=== PATIENT | male | born 1945 | race Caucasian/White ===

== ENCOUNTER 2016-12-17 12:54 | Inpatient (IN) | payer MEDICARE, OTHER ==
[~2016-12-17] VITALS: Ht 162.6 cm; Wt 71.7 kg
[2016-12-17] VITALS (7 sets, daily range): BP systolic 118–134; BP diastolic 60–78; PULSE 62–99; RESP 17–20; TEMP 96–97.9; O2SAT 91–98
[~2016-12-17 12:54] MED LIST: ASPI325T PO; BUME1TAB PO; CARV12.5 PO; DUONI NEB; KCL20 PO; LACT20SO4 PO; MAGN400 PO; METHI10 PO; PHEN100 PO; PRED20 PO; PRIL20CA PO
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
[2016-12-17] MEDS ORDERED: SODIUM CHLORIDE 0.9% FLUSH 10 ML FLUSH IVF PRN (13:15)
--- NOTE | 2016-12-17 14:01 | RADRPT ---
EXAM DATE/TIME: 12/17/2016 13:46 [facility] COMPARISON: CHEST SINGLE AP, December 03, 2015, 14:43. INDICATIONS : Fall 3 days ago. Left hip fracture. MEDICAL HISTORY : Hypertension. Chronic obstructive pulmonary disease. SURGICAL HISTORY : Pacemaker. ENCOUNTER: Initial ACUITY: 3 days PAIN SCORE: 9/10 LOCATION: Left hip FINDINGS: 2 portable frontal views of the chest show elevation left hemidiaphragm. Bibasilar parenchymal consol idation more pronounced on the left. Heart is normal in size. Pulmonary vasculature is normal. Pacing device overlies the left chest. A mildly degenerative thoracic spine. CONCLUSION: Mild bibasilar atelectasis. Nadeem Rm Jr., MD on December 17, 2016 at 13:58 Board Certified Radiologist. This report was verified electronically.
--- NOTE | 2016-12-17 14:14 | RADRPT ---
EXAM DATE/TIME: 12/17/2016 13:28 [facility] COMPARISON: CHEST PA & LAT, December 05, 2015, 10:57. INDICATIONS : Falll 3 days ago. Left hip fracture. MEDICAL HISTORY : Hypertension. Chronic obstructive pulmonary disease. SURGICAL HISTORY : Pacemaker. ENCOUNTER: Initial ACUITY: 3 days PAIN SCORE: 9/10 LOCATION: Left hip FINDINGS: The examination demonstrates a mildly displaced intratrochanteric fracture of the left hip. The remai nder of the femur is intact. The femoral head remains well situated within the acetabular fossa. CONCLUSION: 1. Comminuted, mildly displaced intratrochanteric fracture of the left hip. Justino Castañeda MD on December 17, 2016 at 14:12 Board Certified Radiologist. This report was verified electronically.
--- NOTE | 2016-12-17 14:15 | RADRPT ---
EXAM DATE/TIME: 12/17/2016 13:28 [facility] COMPARISON: CHEST PA & LAT, December 05, 2015, 10:57. INDICATIONS : Fall 3 days ago. Left hip fracture. MEDICAL HISTORY : Hypertension. Chronic obstructive pulmonary disease. SURGICAL HISTORY : Pacemaker. ENCOUNTER: Initial ACUITY: 3 days PAIN SCORE: 9/10 LOCATION: Left hip FINDINGS: The examination demonstrates a mildly displaced intratrochanteric fracture of the left hip. The remai nder of the osseous structures are intact. There are advanced degenerative changes within the lumbar spine. CONCLUSION: 1. Comminuted intratrochanteric fracture of the left hip. Justino Castañeda MD on December 17, 2016 at 14:13 Board Certified Radiologist. This report was verified electronically.
[2016-12-17 14:29] LABS: AUTOMATED NEUTROPHIL # 10.3 TH/MM3 (1.8-7.7); BASOPHIL % 0.2 % (0.0-2.0); EOSINOPHIL # 0.2 TH/MM3 (0-0.4); EOSINOPHIL % 1.4 % (0.0-4.0); HEMATOCRIT 34.7 % (39.0-51.0); HEMO FLAGS DIFF FINAL; LYMPH % 6.1 % (9.0-44.0); LYMPHOCYTE # 0.7 TH/MM3 (1.0-4.8); MEAN CELL VOLUME 99.3 FL (80.0-100.0); MEAN CORPUSCULAR HGB CONC 34.3 % (32.0-36.0); NEUT % 84.3 % (16.0-70.0); PLATELET COUNT 136 TH/MM3 (150-450); RED CELL DISTRIBUTION WIDTH 12.9 % (11.6-17.2); WHITE BLOOD COUNT 12.2 TH/MM3 (4.0-11.0)
[2016-12-17 14:30] LABS: BLOOD, URINE NEG (NEG); GLUCOSE,URINE NEG (NEG); HYALINE CAST, URINE 1 /lpf (RARE); KETONE, URINE NEG (NEG); NITRITE,URINE NEG (NEG); PH, URINE 6.5 (5.0-8.5); URINE COLOR YELLOW (YELLW/STRAW)
[2016-12-17 14:31] LABS: COMMENT (UR) CATH-CULT NOT IND; CULTURE IF INDICATED CATH CULTURE NOT IND
[2016-12-17 14:31] LABS: APTT (PATIENT) 26.8 SEC (24.3-30.1); INTERNATIONAL NORMALIZED RATIO 1.1 RATIO; PROTHROMBIN TIME - PATIENT 11.9 SEC (9.8-11.6)
[2016-12-17] MEDS ORDERED: FURO1TAB62 PO (14:34)
[2016-12-17] MEDS ORDERED: ASPI325T PO (14:34)
[2016-12-17] MEDS ORDERED: POTA10TA2 PO (14:34)
[2016-12-17] MEDS ORDERED: CARV3.125 PO (14:34)
[2016-12-17 14:36] LABS: ALT (GPT) 20 U/L (12-78); ANION GAP 9 MEQ/L (5-15); AST (GOT) 25 U/L (15-37); BICARBONATE 24.3 MEQ/L (21.0-32.0); BLOOD UREA NITROGEN 16 MG/DL (7-18); CHLORIDE 96 MEQ/L (98-107); GLOMERULAR FILTRATION RATE 103 ML/MIN (>89); POTASSIUM 4.5 MEQ/L (3.5-5.1); SODIUM (NA) 129 MEQ/L (136-145)
[2016-12-17 14:39] LABS: ALKALINE PHOSPHATASE 132 U/L (45-117)
[2016-12-17] MEDS ORDERED: BISACODYL 10 MG SUPP RECTAL PRN (15:00)
[2016-12-17] MEDS ORDERED: ONDANSETRON HCL 4 MG/2 ML VIAL IVP PRN (15:00)
[2016-12-17] MEDS ORDERED: MAGNESIUM HYDROXIDE SUSP 30 ML CUP PO PRN (15:00)
[2016-12-17] MEDS ORDERED: HYDROmorphone HCL PF 1 MG/ML VIAL IV PRN (15:00)
[2016-12-17] MEDS ORDERED: LACTULOSE SYRUP 20 GM/30 ML CUP PO PRN (15:00)
[2016-12-17] MEDS ORDERED: NALOXONE HCL 0.4 MG/ML AMP IV PRN (15:00)
[2016-12-17] MEDS ORDERED: SENNOSIDES 8.6 MG TAB PO PRN (15:00)
[2016-12-17] MEDS ORDERED: SODIUM CHLORIDE 0.9% FLUSH 10 ML FLUSH IV FLUSH PRN (15:00)
[2016-12-17] MEDS: SODIUM CHLOR 0.9% 1000 ML INJ 1,000 ML IV SCH (15:14)
[2016-12-17] MEDS: HYDROmorphone HCL PF 1 MG/ML VIAL IV PRN ×3 (15:15→21:45)
--- NOTE | 2016-12-17 16:23 | EKG ---
Date Performed: 12/17/2016 Time Performed: 14:01:55 PTAGE: 71 years EKG: ATRIAL FIBRILLATION WITH ABERRANT CONDUCTION OR VENTRICULAR PREMATURE COMPLEXES RIGHT BUNDL E BRANCH BLOCK POSSIBLE LEFT POSTERIOR FASCICULAR BLOCK ABNORMAL ECG PREVIOUS TRACING : 12/06/2015 11.34 No significant change from previous tracing noted. DOCTOR: Hardeep Paulino Interpretating Date/Time 12/17/2016 16:20:57
[2016-12-17] MEDS: DOCUSATE SODIUM 50 MG/SENNA 8.6 MG TAB PO SCH (20:26)
[2016-12-17] MEDS ORDERED: SODIUM CHLORIDE 0.9% FLUSH 10 ML FLUSH IV FLUSH SCH (21:00)
[2016-12-17] MEDS: REMOVE OLD PATCH T-DERMAL SCH (21:00)
[2016-12-17] MEDS ORDERED: NICOTINE 21 MG/24 HR PATCH T-DERMAL ONE (22:15)
[2016-12-17] MEDS ORDERED: ZOLPIDEM TARTRATE 5 MG TAB PO PRN (22:30)
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
[2016-12-18] VITALS (8 sets, daily range): BP systolic 105–151; BP diastolic 56–82; PULSE 55–114; RESP 18–20; TEMP 96.8–98.7; O2SAT 93–99
[2016-12-18] MEDS ORDERED: GENTAMICIN SULFATE 80 MG/2 ML VIAL ONE (06:57)
[2016-12-18 06:59] LABS: AUTOMATED NEUTROPHIL # 4.8 TH/MM3 (1.8-7.7); BASOPHIL % 0.5 % (0.0-2.0); EOSINOPHIL # 0.4 TH/MM3 (0-0.4); EOSINOPHIL % 5.9 % (0.0-4.0); HEMATOCRIT 30.2 % (39.0-51.0); HEMO FLAGS DIFF FINAL; LYMPH % 15.5 % (9.0-44.0); LYMPHOCYTE # 1.1 TH/MM3 (1.0-4.8); MEAN CELL VOLUME 98.3 FL (80.0-100.0); MEAN CORPUSCULAR HEMOGLOBIN 34.1 PG (27.0-34.0); MEAN CORPUSCULAR HGB CONC 34.7 % (32.0-36.0); MONO % 12.6 % (0.0-8.0); NEUT % 65.5 % (16.0-70.0); PLATELET COUNT 134 TH/MM3 (150-450); RED BLOOD COUNT 3.07 MIL/MM3 (4.50-5.90); WHITE BLOOD COUNT 7.4 TH/MM3 (4.0-11.0)
[2016-12-18] MEDS ORDERED: SUGAMMADEX SODIUM 200 MG/2 ML VIAL IV PUSH ONE ×2 (06:59)
[2016-12-18] MEDS ORDERED: ACETAMINOPHEN 1000 MG/100 ML VIAL IV ONE (07:00)
[2016-12-18 07:27] LABS: POTASSIUM 3.9 MEQ/L (3.5-5.1)
[2016-12-18] MEDS ORDERED: methylPREDNISolone SOD SUCC 125 MG/2 ML VIAL ONE (07:29)
[2016-12-18 07:38] LABS: FREE T3 3.04 PG/ML (2.18-3.98)
[2016-12-18] MEDS ORDERED: FAMOTIDINE 20 MG/2 ML VIAL ONE (08:02)
[2016-12-18] MEDS ORDERED: ceFAZolin 2 GM PREMIX 50 ML ONE (08:15)
[2016-12-18] MEDS ORDERED: REMOVE OLD NICODERM (NICOTINE) PATCH T-DERMAL SCH (08:59)
[2016-12-18] MEDS ORDERED: CARVEDILOL PO SCH (09:00)
[2016-12-18] MEDS ORDERED: FUROSEMIDE PO SCH (09:00)
[2016-12-18] MEDS: LACTATED RINGER'S 1000 ML INJ 1,000 ML IV SCH ×2 (09:00→21:35)
[2016-12-18] MEDS ORDERED: POTASSIUM CHLORIDE PO SCH (09:00)
[2016-12-18] MEDS: DOCUSATE SODIUM 50 MG/SENNA 8.6 MG TAB PO SCH ×2 (09:00→20:16)
[2016-12-18] MEDS: NICOTINE 21 MG/24 HR PATCH T-DERMAL SCH (09:00)
[2016-12-18] MEDS ORDERED: Post-op Orders (for Pharmacy) MISC XX ONE (09:15)
[2016-12-18] MEDS ORDERED: ALUMINUM/MAGNESIUM/SIMETH 30 ML CUP PO PRN (09:15)
[2016-12-18] MEDS ORDERED: MISCELLANEOUS PHARMACY INFORMATION XX ONE (09:15)
[2016-12-18] MEDS ORDERED: MISCELLANEOUS NURSING INFORMATION XX PRN (09:15)
[2016-12-18] MEDS ORDERED: ONDANSETRON HCL 4 MG/2 ML VIAL IVP PRN (09:15)
[2016-12-18] MEDS ORDERED: MORPHINE SULFATE 8 MG/ML INJ IM PRN (09:15)
[2016-12-18] MEDS ORDERED: SODIUM CHLORIDE 0.9% FLUSH 5 ML FLUSH IVF PRN (09:15)
[2016-12-18] MEDS ORDERED: ACETAMINOPHEN/HYDROcodone 325 MG/7.5 MG TAB PO PRN (09:15)
--- NOTE | 2016-12-18 09:19 | PD.OP ---
cc: Jose Maria Chavez MD Operative Report Date of Surgery: Dec 18, 2016 Preoperative Diagnosis: Left peritrochanteric hip fracture Postoperative Diagnosis: Same Procedure: Open treatment internal fixation left peritrochanteric hip fracture, trochanteric nail Anesthesia: Gen. Surgeon: Jose Maria Chavez Account Support Manager(s): NORA Tanner Operation and Findings: EBL: 100 cc INDICATION: This patient is a 71-year-old male with significant left hip pain after fall. He was at his home when he tripped. X-rays showed evidence of a displaced left peritrochanteric hip fracture. He presents for surgical treatment. NOTE: Kathya Tanner PA-C was present for the entire surgical procedure as my engineer first assistant. In my medical opinion her skill and care was necessary for proper management of this patient PROCEDURE: The patient was brought to the operating room and anesthetized in the supine position. He was placed on the fracture table with the left leg held extended. The opposite leg was in the well leg ko. The hip fracture was reduced anatomically. The hip and leg was scrubbed with alcohol followed by Hibiclens followed by ChloraPrep. A timeout was done and antibiotics were given within 1 hour time window. A longitudinal incision was made over the lateral aspect of the proximal femur. Dissection continued down to the top of the greater trochanter. A cannulated awl was placed down through the top of the greater trochanter followed by placement of the guidepin along the shaft of the femur. This was reamed distally to 1 mm greater than the lilly size and proximally to 17 mm. A separate incision was made laterally followed by placement of guidepin to the proper position of the femoral head. This is reamed and tapped in the proper length was placed up into the proper location. A single transverse screw was placed distally through the lilly. Intraoperative x-rays were obtained. Alignment was satisfactory. No complication was noted. The wound was irrigated copiously. Hemostasis was controlled. The fascia was closed with interrupted Vicryl suture, subcutaneous tissue 2-0 Vicryl suture, skin with running intradermal 3-0 Vicryl followed by Steri-Strips and benzoin. A sterile dressing was applied The patient was awakened and taken to the recovery room in satisfactory condition. FINDINGS: There was evidence of a comminuted peritrochanteric hip fracture. The final solution was very satisfactory. No complication was appreciated. Jose Maria Chavez MD Dec 18, 2016 09:19
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
[2016-12-18] MEDS ORDERED: HYDR-3580 PO (09:25)
[2016-12-18] MEDS ORDERED: ENOX40P SQ (09:25)
[2016-12-18] MEDS ORDERED: *MEPERIDINE 25 MG INJ VIAL PERIprocedural Use ONLY ONE (09:56)
[2016-12-18] MEDS ORDERED: fentaNYL CITRATE 250 MCG/5 ML AMP ONE (09:58)
[2016-12-18] MEDS ORDERED: METOPROLOL TARTRATE 25 MG TAB PO PRN (10:45)
[2016-12-18] MEDS ORDERED: LACTATED RINGER'S 1000 ML IV PRN (10:45)
[2016-12-18] MEDS ORDERED: POVIDONE IODINE 5% (ANTISEPSIS KIT) 4 APPLICATIONS EACH NARE PRN (10:45)
[2016-12-18] MEDS ORDERED: SODIUM CHLORID 0.9% 500 ML IV PRN (10:45)
[2016-12-18] MEDS ORDERED: INSULIN HUMAN REGULAR 1,000 UNITS/10 ML VIAL SQ PRN (10:45)
[2016-12-18] MEDS ORDERED: CHLORHEXIDINE GLUCONATE 2 % 1 PACK (2 CLOTHS) TOPICAL PRN (10:45)
[2016-12-18] MEDS ORDERED: *morphine SULFATE 8 MG/ML PERIprocedure ONLY ONE ×2 (10:47→11:11)
[2016-12-18] MEDS ORDERED: DO NOT ADM ANY ANTICOAGULANT DRUGS PRN (11:00)
[2016-12-18] MEDS ORDERED: *HYDROmorphone PF 1 MG VIAL PERIprocedural Use ONLY ONE (11:35)
--- NOTE | 2016-12-18 11:57 | RADRPT ---
EXAM DATE/TIME: 12/18/2016 09:08 [place] COMPARISON: FEMUR LEFT (AP & LAT/2VWS), December 17, 2016, 13:28. INDICATIONS : Left hip troch nail. MEDICAL HISTORY : None. SURGICAL HISTORY : None. ENCOUNTER: Initial ACUITY: 1 day PAIN SCORE: Non-responsive. LOCATION: Left Hip. FINDINGS: Intramedullary lilly is present traversing the femur with fixation screws proximally and distally. Ther e is gross anatomical alignment of the fracture fragments. CONCLUSION: Intact postsurgical changes. Manish Richter MD on December 18, 2016 at 11:55 Board Certified Radiologist. This report was verified electronically.
[2016-12-18] MEDS ORDERED: PROPOFOL 200 MG/20 ML AMP IV ONE (12:00)
[2016-12-18] MEDS ORDERED: ONDANSETRON HCL 4 MG/2 ML VIAL IV PUSH ONE (12:00)
[2016-12-18] MEDS ORDERED: PHENYLEPH/NS 1000 MCG/10 ML SYR IV ONE (12:00)
[2016-12-18] MEDS: SODIUM CHLOR 0.9% 1000 ML INJ 1,000 ML IV SCH (13:46)
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
[2016-12-18 15:37] LABS: PROTHROMBIN TIME - PATIENT 11.1 SEC (9.8-11.6)
--- NOTE | 2016-12-18 17:22 | HHI.PR ---
Subjective Remarks Patient seen status post surgery. He did well in surgery. No arrhythmias. No exacerbations of underlying conditions. Objective Vital Signs Date Time Temp Pulse Resp B/P Pulse Ox O2 Delivery O2 Flow Rate FiO2 12/18/16 16:00 12/18/16 15:29 93 Nasal Cannula 4.00 12/18/16 13:49 97.0 114 19 137/77 93 12/18/16 13:30 97.8 110 20 137/77 97 12/18/16 12:30 111 16 122/63 99 Nasal Cannula 4 12/18/16 11:30 112 16 125/68 94 Nasal Cannula 4 12/18/16 10:15 111 16 139/65 98 Nasal Cannula 4 12/18/16 10:00 109 16 137/77 90 Nasal Cannula 4 12/18/16 09:50 98.9 110 16 145/66 94 Nasal Cannula 4 12/18/16 04:00 96.8 83 18 128/56 93 12/18/16 00:00 96.8 84 18 124/82 93 12/17/16 22:15 18 12/17/16 20:00 96.5 62 18 120/60 92 12/17/16 17:22 96.0 87 18 118/61 91 I/O 12/17/16 12/17/16 12/17/16 12/18/16 12/18/16 12/18/16 07:00 15:00 23:00 07:00 15:00 23:00 Intake Total 320 ml 0 ml 810 ml Output Total 100 ml 550 ml 100 ml Balance 220 ml -550 ml 710 ml Intake Oral 320 ml 0 ml 10 ml IV Total 100 ml Other 700 ml Output Urine Total 100 ml 550 ml 0 ml Estimated Blood Loss 100 ml Other 0 ml # Bowel Movements 0 0 Result Diagram: 12/18/16 0557 12/18/16 0557 Objective Remarks GENERAL: NAD, A&Ox3 HEAD: Normocephalic. NECK: Supple, trachea midline. No lymphadenopathy. EYES: No scleral icterus. No injection or drainage. CARDIOVASCULAR: Regular rate and rhythm without murmurs, gallops, or rubs. RESPIRATORY: Breath sounds equal bilaterally. No accessory muscle use. GASTROINTESTINAL: Abdomen soft, non-tender, nondistended. MUSCULOSKELETAL: No cyanosis, or edema. Left-sided pacemaker SKIN: Warm and dry. Bandage wounds at left hip NEURO: No focal neurological deficitis. A/P Problem List: (1) Hip fracture, left ICD Code: S72.002A (2) Old [place] (myocardial infarction) ICD Code: I25.2 (3) Hyperthyroidism ICD Code: E05.90 (4) Atrial fibrillation ICD Code: I48.91 (5) COPD (chronic obstructive pulmonary disease) ICD Code: J44.9 Assessment and Plan Assessment and Plan 71 year old male admitted with a left hip fracture after a fall, status post surgical repair. Doing well postop. No exacerbations of COPD or cardiac pathologies. Follow CBC in a.m. Left Hip Fracture Ortho following PRN pain treatments CAD Old [place] CHF A-fib AICD (Hx of arrhythmia) Hx of Cardiac Arrest No chest pain Follow on telemetry Cardiology consulted for pre-op evaluation Holding aspirin for surgery Continue lasix Continue carvedilol Resume aspirin in a.m. HTN Follow BP adjust treatments as needed Hyperlipidemia Follow as an outpatient Hyperthyroidism Check TSH, T3, T4 Sleep Apnea Hx of CVA COPD Insomnia No exacerbations Continue home managements DVT Prophylaxis SCDs Anticoagulation post op Justino Powell MD Dec 18, 2016 5:22 pm
[2016-12-18] MEDS: SODIUM CHLORIDE 0.9% FLUSH 5 ML FLUSH IVF SCH (20:16)
[2016-12-18] MEDS: SENNOSIDES 8.6 MG TAB PO SCH (20:16)
[2016-12-18] MEDS: MAGNESIUM HYDROXIDE SUSP 30 ML CUP PO SCH (20:16)
[2016-12-18] MEDS: REMOVE OLD PATCH T-DERMAL SCH (20:20)
[2016-12-18] MEDS: ACETAMINOPHEN/HYDROcodone 325 MG/7.5 MG TAB PO PRN (21:32)
[2016-12-19] VITALS (10 sets, daily range): BP systolic 124–172; BP diastolic 65–89; PULSE 74–119; RESP 16–20; TEMP 95.3–96.5; O2SAT 92–100
[2016-12-19] MEDS: SODIUM CHLOR 0.9% 1000 ML INJ 1,000 ML IV SCH ×2 (03:09→15:12)
[2016-12-19] MEDS: ACETAMINOPHEN/HYDROcodone 325 MG/7.5 MG TAB PO PRN ×4 (04:35→22:39)
[2016-12-19 06:46] LABS: MEAN CELL VOLUME 99.7 FL (80.0-100.0); MEAN CORPUSCULAR HEMOGLOBIN 33.3 PG (27.0-34.0); MEAN CORPUSCULAR HGB CONC 33.4 % (32.0-36.0); PLATELET COUNT 124 TH/MM3 (150-450); RED BLOOD COUNT 2.81 MIL/MM3 (4.50-5.90); RED CELL DISTRIBUTION WIDTH 12.8 % (11.6-17.2); REVIEW FLAG FINAL; WHITE BLOOD COUNT 11.5 TH/MM3 (4.0-11.0)
[2016-12-19 07:09] LABS: BICARBONATE 24.8 MEQ/L (21.0-32.0)
[2016-12-19] MEDS ORDERED: WALKER WHEELS/F1 MIS (08:11)
--- NOTE | 2016-12-19 08:14 | PD.ORT.PN ---
Subjective Subjective Remarks Moderate left hip aching. No pain below knee. He is on the phone with dietary and is very concerned with talking about his breakfast. No other complaints or concerns. No new CP or SOB. Objective Vitals Vital Signs Date Time Temp Pulse Resp B/P Pulse Ox O2 Delivery O2 Flow Rate FiO2 12/19/16 07:28 96.4 98 19 133/65 94 12/19/16 04:18 92 Nasal Cannula 3.00 12/19/16 04:00 96.2 82 17 154/78 96 12/19/16 00:10 74 12/18/16 23:55 97.1 55 19 123/77 96 12/18/16 19:00 96.8 109 18 151/82 94 12/18/16 16:00 12/18/16 15:29 93 Nasal Cannula 4.00 12/18/16 13:49 97.0 114 19 137/77 93 12/18/16 13:30 97.8 110 20 137/77 97 12/18/16 12:30 111 16 122/63 99 Nasal Cannula 4 12/18/16 11:30 112 16 125/68 94 Nasal Cannula 4 12/18/16 10:15 111 16 139/65 98 Nasal Cannula 4 12/18/16 10:00 109 16 137/77 90 Nasal Cannula 4 12/18/16 09:50 98.9 110 16 145/66 94 Nasal Cannula 4 I/O 12/18/16 12/18/16 12/18/16 12/19/16 12/19/16 12/19/16 07:00 15:00 23:00 07:00 15:00 23:00 Intake Total 0 ml 810 ml 1300 ml 480 ml Output Total 550 ml 100 ml 800 ml 1500 ml Balance -550 ml 710 ml 500 ml -1020 ml Intake Oral 0 ml 10 ml 480 ml 480 ml IV Total 100 ml 820 ml Other 700 ml Output Urine Total 550 ml 0 ml 800 ml 1500 ml Estimated Blood Loss 100 ml Other 0 ml # Bowel Movements 0 0 0 Result Diagram: 12/19/1612 12/19/16 0612 Other Results Laboratory Tests Test 12/18/16 14:45 Prothrombin Time 11.1 SEC (9.8-11.6) Prothromb Time International 1.0 RATIO Ratio Objective Remarks Sitting up in bed on phone NAD VSS LLE Dressings c/d/i, mild swelling, no erythema, very little drainage thigh and calf supple, neg homans +motor at, +sens, +nvi Assessment & Plan Ortho Post Op Day #: 1 Problem List: Assessment and Plan Left peritrochanteric hip fracture, displaced. pod#1 s/p ORIF L Hip, IM nail Ortho stable. TTWBing LLE. Walker assist. Lovenox for dvt prophylaxis Dry dressing changes beginning pod#2. PO pain control as needed. F/U in 2 weeks at [facility] for xray and wound eval. Tamia Harris Dec 19, 2016 08:14
[2016-12-19] MEDS: SODIUM CHLORIDE 0.9% FLUSH 5 ML FLUSH IVF SCH ×2 (09:00→19:53)
[2016-12-19] MEDS: LACTATED RINGER'S 1000 ML INJ 1,000 ML IV SCH ×2 (10:00→22:30)
[2016-12-19] MEDS: DOCUSATE SODIUM 50 MG/SENNA 8.6 MG TAB PO SCH ×2 (10:07→19:52)
[2016-12-19] MEDS: MAGNESIUM HYDROXIDE SUSP 30 ML CUP PO SCH ×2 (10:07→19:53)
[2016-12-19] MEDS: ENOXAPARIN SODIUM 40 MG/0.4 ML SYRINGE SQ SCH (10:08)
[2016-12-19] MEDS: NICOTINE 21 MG/24 HR PATCH T-DERMAL SCH (10:09)
--- NOTE | 2016-12-19 10:44 | HHI.PR ---
Subjective Remarks Out of bed in chair today. Doing well post hip surgery. No significant drop in hemoglobin. Objective Vital Signs Date Time Temp Pulse Resp B/P Pulse Ox O2 Delivery O2 Flow Rate FiO2 12/19/16 07:28 96.4 98 19 133/65 94 12/19/16 04:18 92 Nasal Cannula 3.00 12/19/16 04:00 96.2 82 17 154/78 96 12/19/16 00:10 74 12/18/16 23:55 97.1 55 19 123/77 96 12/18/16 19:00 96.8 109 18 151/82 94 12/18/16 16:00 12/18/16 15:29 93 Nasal Cannula 4.00 12/18/16 13:49 97.0 114 19 137/77 93 12/18/16 13:30 97.8 110 20 137/77 97 12/18/16 12:30 111 16 122/63 99 Nasal Cannula 4 12/18/16 11:30 112 16 125/68 94 Nasal Cannula 4 I/O 12/18/16 12/18/16 12/18/16 12/19/16 12/19/16 12/19/16 07:00 15:00 23:00 07:00 15:00 23:00 Intake Total 0 ml 810 ml 1300 ml 480 ml Output Total 550 ml 100 ml 800 ml 1500 ml Balance -550 ml 710 ml 500 ml -1020 ml Intake Oral 0 ml 10 ml 480 ml 480 ml IV Total 100 ml 820 ml Other 700 ml Output Urine Total 550 ml 0 ml 800 ml 1500 ml Estimated Blood Loss 100 ml Other 0 ml # Bowel Movements 0 0 0 Result Diagram: 12/19/1661112/19/1612 Objective Remarks GENERAL: NAD, A&Ox3 HEAD: Normocephalic. NECK: Supple, trachea midline. No lymphadenopathy. EYES: No scleral icterus. No injection or drainage. CARDIOVASCULAR: Regular rate and rhythm without murmurs, gallops, or rubs. RESPIRATORY: Breath sounds equal bilaterally. No accessory muscle use. GASTROINTESTINAL: Abdomen soft, non-tender, nondistended. MUSCULOSKELETAL: No cyanosis, or edema. Left-sided pacemaker SKIN: Warm and dry. Bandage wounds at left hip NEURO: No focal neurological deficitis. A/P Problem List: (1) Hip fracture, left ICD Code: S72.002A (2) Old [place] (myocardial infarction) ICD Code: I25.2 (3) Hyperthyroidism ICD Code: E05.90 (4) Atrial fibrillation ICD Code: I48.91 (5) COPD (chronic obstructive pulmonary disease) ICD Code: J44.9 Assessment and Plan Assessment and Plan 71 year old male admitted with a left hip fracture after a fall, status post surgical repair. Doing well postop. No exacerbations of COPD or cardiac pathologies. Stable hemoglobin thus far. Patient will likely need penitentiary facility at discharge. Continue PT. Left Hip Fracture Ortho following PRN pain treatments CAD Old [place] CHF A-fib AICD (Hx of arrhythmia) Hx of Cardiac Arrest No chest pain Follow on telemetry Cardiology consulted for pre-op evaluation Holding aspirin for surgery Continue lasix Continue carvedilol Resume aspirin in a.m. HTN Follow BP adjust treatments as needed Hyperlipidemia Follow as an outpatient Hyperthyroidism Check TSH, T3, T4 Sleep Apnea Hx of CVA COPD Insomnia No exacerbations Continue home managements DVT Prophylaxis Lovenox SCDs Discharge planning Tentative plan to discharge to inpatient rehabilitation in 1-2 days. Justino Powell MD Dec 19, 2016 10:44
[2016-12-19] MEDS ORDERED: CARVEDILOL 6.25 MG TAB PO SCH (14:45)
[2016-12-19] MEDS ORDERED: FUROSEMIDE 20 MG TAB PO SCH (14:45)
--- NOTE | 2016-12-19 14:46 | PD.CARD.PN ---
Subjective Subjective Remarks No CP or SOB Objective Medications Current Medications Medications (Trade) Dose Ordered Sig/Suhas Route Start Time Stop Time Status Last Admin (NS 1000 ml Inj) 1,000 ml @ 83 mls/hr Q12H3M IV 12/17/16 15:00 12/17/16 15:14 (Dilaudid Pf Inj) 0.5 mg Q3H PRN IV 12/17/16 15:00 (Narcan Inj) 0.4 mg UNSCH PRN IV 12/17/16 15:00 (Angela-Colace) 1 tab BID PO 12/17/16 21:00 12/19/16 10:07 (Senokot) 17.2 mg Q12H PRN PO 12/17/16 15:00 (Dulcolax Supp) 10 mg DAILY PRN RECTAL 12/17/16 15:00 (Lactulose Liq) 30 ml DAILY PRN PO 12/17/16 15:00 (Habitrol 21 Mg Patch.24 Hr) 1 patch DAILY T-DERMAL 12/18/16 09:00 12/19/16 10:09 Miscellaneous Information 1 HS T-DERMAL 12/17/16 21:00 (Ambien) 5 mg HS PRN PO 12/17/16 22:30 Non-Formulary Medication 0.5 tab BID PO 12/18/16 09:00 UNV Non-Formulary Medication 1 tab DAILY PO 12/18/16 09:00 UNV Non-Formulary Medication 1 tab 1 tab DAILY PO 12/18/16 09:00 UNV (Lr 1000 ml Inj) 1,000 ml @ 80 mls/hr [id number] IV 12/18/16 09:00 12/18/16 21:35 (NS Flush) 2 ml UNSCH PRN IVF 12/18/16 09:15 (NS Flush) 2 ml BID IVF 12/18/16 21:00 12/19/16 09:00 (Lovenox Inj) 40 mg Q24H SQ 12/19/16 09:00 12/19/16 10:08 Miscellaneous Information UNSCH PRN XX 12/18/16 09:15 (Morphine Inj) 5 mg Q3H PRN IM 12/18/16 09:15 ([place] 7.5-325 Mg) 1 tab Q4H PRN PO 12/18/16 09:15 12/18/16 17:20 ([place] 7.5-325 Mg) 2 tab Q4H PRN PO 12/18/16 09:15 12/19/16 10:09 (Zofran Inj) 4 mg Q6H PRN IVP 12/18/16 09:15 (Mag-Al Plus Susp Liq) 30 ml Q6H PRN PO 12/18/16 09:15 (Milk Of Magnesia Liq) 30 ml BID PO 12/18/16 21:00 12/19/16 10:07 (Senokot) 17.2 mg HS PO 12/18/16 21:00 12/18/16 20:16 (Ecotrin Ec) 325 mg DAILY PO 12/19/16 09:00 Vital Signs / I&O Vital Signs Date Time Temp Pulse Resp B/P Pulse Ox O2 Delivery O2 Flow Rate FiO2 12/19/16 12:00 96.3 105 20 124/69 93 12/19/16 11:04 94 21 12/19/16 07:28 96.4 98 19 133/65 94 12/19/16 04:18 92 Nasal Cannula 3.00 12/19/16 04:00 96.2 82 17 154/78 96 12/19/16 00:10 74 12/18/16 23:55 97.1 55 19 123/77 96 12/18/16 19:00 96.8 109 18 151/82 94 12/18/16 16:00 12/18/16 15:29 93 Nasal Cannula 4.00 I/O 12/18/16 12/18/16 12/18/16 12/19/16 12/19/16 12/19/16 06:59 14:59 22:59 06:59 14:59 22:59 Intake Total 0 ml 810 ml 1300 ml 480 ml 600 ml Output Total 550 ml 100 ml 800 ml 1500 ml 400 ml Balance -550 ml 710 ml 500 ml -1020 ml 200 ml Intake Oral 0 ml 10 ml 480 ml 480 ml 600 ml IV Total 100 ml 820 ml Other 700 ml Output Urine Total 550 ml 0 ml 800 ml 1500 ml 400 ml Estimated Blood Loss 100 ml Other 0 ml # Bowel Movements 0 0 0 0 Physical Exam GENERAL: In NAD SKIN: Warm and dry. HEAD: Normocephalic. EYES: No scleral icterus. No injection or drainage. NECK: Supple, trachea midline. No JVD or lymphadenopathy. CARDIOVASCULAR: Irregular rate and rhythm without murmurs, gallops, or rubs. RESPIRATORY: Breath sounds equal bilaterally. No accessory muscle use. GASTROINTESTINAL: Abdomen soft, non-tender, nondistended. MUSCULOSKELETAL: No cyanosis, or edema. Laboratory Laboratory Tests Test 12/18/16 12/19/16 14:45 06:12 Prothrombin Time 11.1 SEC Prothromb Time International 1.0 RATIO Ratio Blood Type O POSITIVE Antibody Screen NEGATIVE Blood Bank Comment White Blood Count 11.5 TH/MM3 Red Blood Count 2.81 MIL/MM3 Hemoglobin 9.3 GM/DL Hematocrit 28.0 % Mean Corpuscular Volume 99.7 FL Mean Corpuscular Hemoglobin 33.3 PG Mean Corpuscular Hemoglobin 33.4 % Concent Red Cell Distribution Width 12.8 % Platelet Count 124 TH/MM3 Mean Platelet Volume 9.5 FL Sodium Level 131 MEQ/L Potassium Level 5.0 MEQ/L Chloride Level 98 MEQ/L Carbon Dioxide Level 24.8 MEQ/L Anion Gap 8 MEQ/L Blood Urea Nitrogen 17 MG/DL Creatinine 0.69 MG/DL Estimat Glomerular Filtration 113 ML/MIN Rate Random Glucose 129 MG/DL Calcium Level 8.5 MG/DL Imaging Last Impressions Hip X-Ray 12/18/16 0000 Signed Impressions: Service Date/Time: December 09:08 - CONCLUSION: Intact postsurgical changes. KAlfie Richter MD Hip and Pelvis X-Ray 12/17/16 1306 Signed Impressions: Service Date/Time: Saturday, December 17, 2016 13:28 - CONCLUSION: 1. Comminuted intratrochanteric fracture of the left hip. Justino Castañeda MD Chest X-Ray 12/17/16 1306 Signed Impressions: Service Date/Time: Saturday, December 17, 2016 13:46 - CONCLUSION: Mild bibasilar atelectasis. Nadeem Rm Jr., MD Femur X-Ray 12/17/16 0000 Signed Impressions: Service Date/Time: Saturday, December 17, 2016 13:28 - CONCLUSION: 1. Comminuted , mildly displaced intratrochanteric fracture of the left hip. Justino Castañeda MD Assessment and Plan Problem List: (1) Chronic congestive heart failure (2) CAD (coronary artery disease) (3) Atrial fibrillation (4) Old [place] (myocardial infarction) (5) Hip fracture, left (6) Obstructive sleep apnea syndrome (7) COPD (chronic obstructive pulmonary disease) (8) Benign essential hypertension Assessment and Plan HR increased, carvedilol restarted. Also restarted furosemide. Continue monitoring on tele. Increase activity. ICD interrogation (BS) this PM. D[facility] pt [facility]. Jonathan Mobley MD Dec 19, 2016 14:46
[2016-12-19] MEDS ORDERED: CARV12.52 PO (15:35)
[2016-12-19] MEDS ORDERED: FURO1TAB60 PO (15:38)
[2016-12-19] MEDS ORDERED: POTA-163 PO (15:39)
[2016-12-19] MEDS ORDERED: SYMB80AE INH (15:40)
[2016-12-19] MEDS ORDERED: OMEP20TA PO (15:46)
[2016-12-19] MEDS: ASPIRIN EC 325 MG TABEC PO SCH (16:16)
[2016-12-19] MEDS ORDERED: IPRASOL INH (16:23)
[2016-12-19] MEDS: FUROSEMIDE 40 MG TAB PO SCH (19:52)
[2016-12-19] MEDS: SENNOSIDES 8.6 MG TAB PO SCH (19:52)
[2016-12-19] MEDS: REMOVE OLD PATCH T-DERMAL SCH (19:53)
[2016-12-19] MEDS: CARVEDILOL 12.5 MG TAB PO SCH (19:53)
[2016-12-19] MEDS ORDERED: FUROSEMIDE 40 MG TAB PO SCH (21:00)
[2016-12-19] MEDS ORDERED: CARVEDILOL 12.5 MG TAB PO SCH (21:00)
[2016-12-19] MEDS: RESP: ALBUTEROL 2.5 MG/IPRATROPIUM 0.5 MG NEB (SCH) INH (21:13)
[2016-12-19] MEDS: BUDESONIDE-FORMOTEROL 80/4.5 MCG INHALER INH SCH (21:24)
[2016-12-20] VITALS (10 sets, daily range): BP systolic 92–126; BP diastolic 57–78; PULSE 87–110; RESP 17–19; TEMP 95.9–97.2; O2SAT 93–97
[2016-12-20] MEDS: SODIUM CHLOR 0.9% 1000 ML INJ 1,000 ML IV SCH ×2 (03:15→15:18)
[2016-12-20] MEDS: RESP: ALBUTEROL 2.5 MG/IPRATROPIUM 0.5 MG NEB (SCH) INH ×4 (03:22→21:56)
[2016-12-20] MEDS: ACETAMINOPHEN/HYDROcodone 325 MG/7.5 MG TAB PO PRN ×3 (04:26→17:54)
[2016-12-20 06:44] LABS: HEMATOCRIT 27.7 % (39.0-51.0); PLATELET COUNT 155 TH/MM3 (150-450); RED BLOOD COUNT 2.77 MIL/MM3 (4.50-5.90); REVIEW FLAG FINAL; WHITE BLOOD COUNT 9.8 TH/MM3 (4.0-11.0)
[2016-12-20 06:57] LABS: BICARBONATE 26.4 MEQ/L (21.0-32.0); POTASSIUM 4.8 MEQ/L (3.5-5.1)
[2016-12-20] MEDS: MAGNESIUM HYDROXIDE SUSP 30 ML CUP PO SCH ×2 (08:40→21:12)
[2016-12-20] MEDS: NICOTINE 21 MG/24 HR PATCH T-DERMAL SCH (08:40)
[2016-12-20] MEDS: ENOXAPARIN SODIUM 40 MG/0.4 ML SYRINGE SQ SCH (08:40)
[2016-12-20] MEDS: ASPIRIN EC 325 MG TABEC PO SCH (08:41)
[2016-12-20] MEDS: DOCUSATE SODIUM 50 MG/SENNA 8.6 MG TAB PO SCH ×2 (08:41→21:12)
[2016-12-20] MEDS: POTASSIUM CHLORIDE 20 MEQ CONTROLLED RELEASE TAB PO SCH (08:41)
[2016-12-20] MEDS: PANTOPRAZOLE SOD 20 MG DELAYED RELEASE TAB PO SCH (08:42)
[2016-12-20] MEDS: FUROSEMIDE 40 MG TAB PO SCH ×2 (08:42→21:12)
[2016-12-20] MEDS: CARVEDILOL 12.5 MG TAB PO SCH ×2 (08:42→21:12)
[2016-12-20] MEDS: BUDESONIDE-FORMOTEROL 80/4.5 MCG INHALER INH SCH ×2 (08:43→21:14)
[2016-12-20] MEDS: SODIUM CHLORIDE 0.9% FLUSH 5 ML FLUSH IVF SCH ×2 (08:43→21:13)
--- NOTE | 2016-12-20 09:56 | PD.ORT.PN ---
Subjective Post Op Day #: 2 Subjective Remarks Pt sitting upright in bed, eating breakfast. Admits to controlled pain. Feels ready for d/c to rehab. Objective Vitals Vital Signs Date Time Temp Pulse Resp B/P Pulse Ox O2 Delivery O2 Flow Rate FiO2 12/20/16 07:57 96 Nasal Cannula 2.00 12/20/16 04:00 96.0 87 19 113/67 96 12/20/16 03:24 93 Nasal Cannula 2.00 12/20/16 00:15 88 12/20/16 00:00 96.8 110 17 92/57 97 12/19/16 21:13 98 Nasal Cannula 2.00 12/19/16 20:00 112 12/19/16 19:00 96.5 119 16 172/89 100 12/19/16 15:34 95.3 105 20 150/81 93 12/19/16 12:00 96.3 105 20 124/69 93 12/19/16 11:04 94 21 I/O 12/19/16 12/19/16 12/19/16 12/20/16 12/20/16 12/20/16 06:59 14:59 22:59 06:59 14:59 22:59 Intake Total 480 ml 600 ml 480 ml 480 ml Output Total 1500 ml 400 ml 700 ml 1200 ml Balance -1020 ml 200 ml -220 ml -720 ml Intake Oral 480 ml 600 ml 480 ml 480 ml Output Urine Total 1500 ml 400 ml 700 ml 1200 ml # Bowel Movements 0 0 0 1 Result Diagram: 12/20/16 0524 12/20/16 0524 Imaging Last Impressions Hip X-Ray 12/18/16 0000 Signed Impressions: Service Date/Time: December 09:08 - CONCLUSION: Intact postsurgical changes. K. Tee Richter MD Hip and Pelvis X-Ray 12/17/16 1306 Signed Impressions: Service Date/Time: Saturday, December 17, 2016 13:28 - CONCLUSION: 1. Comminuted intratrochanteric fracture of the left hip. Justino Castañeda MD Chest X-Ray 12/17/16 1306 Signed Impressions: Service Date/Time: Saturday, December 17, 2016 13:46 - CONCLUSION: Mild bibasilar atelectasis. Nadeem Rm Jr., MD Femur X-Ray 12/17/16 0000 Signed Impressions: Service Date/Time: Saturday, December 17, 2016 13:28 - CONCLUSION: 1. Comminuted , mildly displaced intratrochanteric fracture of the left hip. Justino Castañeda MD Procedures s/p ORIF L Hip, IM nail Objective Remarks NAD VSS LLE Dressings c/d/i, mild swelling, no erythema, very little drainage thigh and calf supple, neg homans +motor at, +sens, +nvi Assessment & Plan Ortho Post Op Day #: 2 Problem List: (1) Hip fracture, left Assessment and Plan Left peritrochanteric hip fracture, displaced. pod#2 s/p ORIF L Hip, IM nail Ortho stable. TTWBing LLE. Walker assist. No abduction pillow needed. Lovenox for dvt prophylaxis No dressing changes. PO pain control as needed. F/U in 2 weeks at [facility] for xray and wound eval. Nicole Tanner Dec 20, 2016 09:56
[2016-12-20] MEDS: LACTATED RINGER'S 1000 ML INJ 1,000 ML IV SCH (11:00)
--- NOTE | 2016-12-20 17:17 | HHI.PR ---
Subjective Remarks Patient does not feel well today. He says he is feeling fatigue. She does note swelling at his left leg. Swelling may be secondary to surgery but could also represent hematoma or thrombus. Objective Vital Signs Date Time Temp Pulse Resp B/P Pulse Ox O2 Delivery O2 Flow Rate FiO2 12/20/16 08:00 96.3 96 18 126/70 93 12/20/16 07:57 96 Nasal Cannula 2.00 12/20/16 04:00 96.0 87 19 113/67 96 12/20/16 03:24 93 Nasal Cannula 2.00 12/20/16 00:15 88 12/20/16 00:00 96.8 110 17 92/57 97 12/19/16 21:13 98 Nasal Cannula 2.00 12/19/16 20:00 112 12/19/16 19:00 96.5 119 16 172/89 100 I/O 12/19/16 12/19/16 12/19/16 12/20/16 12/20/16 12/20/16 07:00 15:00 23:00 07:00 15:00 23:00 Intake Total 480 ml 600 ml 480 ml 480 ml Output Total 1500 ml 400 ml 700 ml 1200 ml Balance -1020 ml 200 ml -220 ml -720 ml Intake Oral 480 ml 600 ml 480 ml 480 ml Output Urine Total 1500 ml 400 ml 700 ml 1200 ml # Bowel Movements 0 0 0 1 Result Diagram: 12/20/1652312/20/16523 Objective Remarks GENERAL: NAD, A&Ox3 HEAD: Normocephalic. NECK: Supple, trachea midline. No lymphadenopathy. EYES: No scleral icterus. No injection or drainage. CARDIOVASCULAR: Regular rate and rhythm without murmurs, gallops, or rubs. RESPIRATORY: Breath sounds equal bilaterally. No accessory muscle use. GASTROINTESTINAL: Abdomen soft, non-tender, nondistended. MUSCULOSKELETAL: No cyanosis, or edema. Left-sided pacemaker. Increased swelling at left leg. SKIN: Warm and dry. Bandage wounds at left hip NEURO: No focal neurological deficitis. A/P Problem List: (1) Hip fracture, left ICD Code: S72.002A (2) Old [place] (myocardial infarction) ICD Code: I25.2 (3) Hyperthyroidism ICD Code: E05.90 (4) Atrial fibrillation ICD Code: I48.91 (5) COPD (chronic obstructive pulmonary disease) ICD Code: J44.9 Assessment and Plan Assessment and Plan 71 year old male admitted with a left hip fracture after a fall, status post surgical repair. Left leg swollen and may be related to surgery or other cause. Follow CBC regarding left leg swelling. If swelling continues we'll obtain Doppler ultrasound tomorrow. If his current condition improves will consider discharge to inpatient rehabilitation tomorrow. Left Hip Fracture Ortho following PRN pain treatments CAD Old OK CHF A-fib AICD (Hx of arrhythmia) Hx of Cardiac Arrest No chest pain Follow on telemetry Cardiology consulted for pre-op evaluation Holding aspirin for surgery Continue lasix Continue carvedilol Resume aspirin in a.m. HTN Follow BP adjust treatments as needed Hyperlipidemia Follow as an outpatient Hyperthyroidism Check TSH, T3, T4 Sleep Apnea Hx of CVA COPD Insomnia No exacerbations Continue home managements DVT Prophylaxis Lovenox SCDs Discharge planning Tentative plan to discharge to inpatient rehabilitation in 1-2 days. Justino Powell MD Dec 20, 2016 17:17
[2016-12-20] MEDS: SENNOSIDES 8.6 MG TAB PO SCH (21:12)
[2016-12-20] MEDS: REMOVE OLD PATCH T-DERMAL SCH (21:14)
[2016-12-21] VITALS (7 sets, daily range): BP systolic 119–130; BP diastolic 71–78; PULSE 108–116; RESP 18–19; TEMP 96.2–97.6; O2SAT 92–96
[2016-12-21] MEDS: RESP: ALBUTEROL 2.5 MG/IPRATROPIUM 0.5 MG NEB (SCH) INH ×3 (04:01→15:48)
[2016-12-21] MEDS: MAGNESIUM HYDROXIDE SUSP 30 ML CUP PO SCH (09:00)
[2016-12-21] MEDS: SODIUM CHLORIDE 0.9% FLUSH 5 ML FLUSH IVF SCH (09:00)
[2016-12-21] MEDS: NICOTINE 21 MG/24 HR PATCH T-DERMAL SCH (09:32)
[2016-12-21] MEDS: BUDESONIDE-FORMOTEROL 80/4.5 MCG INHALER INH SCH (09:32)
[2016-12-21] MEDS: CARVEDILOL 12.5 MG TAB PO SCH (09:32)
[2016-12-21] MEDS: ASPIRIN EC 325 MG TABEC PO SCH (09:32)
[2016-12-21] MEDS: FUROSEMIDE 40 MG TAB PO SCH (09:32)
[2016-12-21] MEDS: ENOXAPARIN SODIUM 40 MG/0.4 ML SYRINGE SQ SCH (09:32)
[2016-12-21] MEDS: PANTOPRAZOLE SOD 20 MG DELAYED RELEASE TAB PO SCH (09:38)
[2016-12-21] MEDS: DOCUSATE SODIUM 50 MG/SENNA 8.6 MG TAB PO SCH (09:38)
[2016-12-21] MEDS: POTASSIUM CHLORIDE 20 MEQ CONTROLLED RELEASE TAB PO SCH (09:38)
--- NOTE | 2016-12-21 09:40 | PD.ORT.PN ---
Subjective Post Op Day #: 3 Subjective Remarks Pt working with PT. Walked successfully. Admits to controlled pain. Feels ready for d/c to rehab today. Awaiting placement. Objective Vitals Vital Signs Date Time Temp Pulse Resp B/P Pulse Ox O2 Delivery O2 Flow Rate FiO2 12/21/16 08:08 95 Nasal Cannula 2.00 12/21/16 06:20 Nasal Cannula 3.00 12/21/16 04:00 96.2 114 18 119/78 92 12/21/16 00:00 97.6 110 18 125/72 95 12/20/16 21:59 94 Nasal Cannula 2.00 12/20/16 20:00 97.2 97 18 114/78 94 12/20/16 16:00 95.9 93 18 118/73 96 12/20/16 12:00 95.9 93 18 118/73 96 I/O 12/20/16 12/20/16 12/20/16 12/21/16 12/21/16 12/21/16 07:00 15:00 23:00 07:00 15:00 23:00 Intake Total 480 ml 960 ml 480 ml 720 ml Output Total 1200 ml 1050 ml Balance -720 ml 960 ml -570 ml 720 ml Intake Oral 480 ml 960 ml 480 ml 720 ml Output Urine Total 1200 ml 1050 ml # Voids 5 1 # Bowel Movements 1 0 0 1 Result Diagram: 12/20/16 0524 12/20/16 0524 Imaging Last Impressions Hip X-Ray 12/18/16 0000 Signed Impressions: Service Date/Time: December 09:08 - CONCLUSION: Intact postsurgical changes. K. Tee Richter MD Hip and Pelvis X-Ray 12/17/16 1306 Signed Impressions: Service Date/Time: Saturday, December 17, 2016 13:28 - CONCLUSION: 1. Comminuted intratrochanteric fracture of the left hip. Justino Castañeda MD Chest X-Ray 12/17/16 1306 Signed Impressions: Service Date/Time: Saturday, December 17, 2016 13:46 - CONCLUSION: Mild bibasilar atelectasis. Nadeem Rm Jr., MD Femur X-Ray 12/17/16 0000 Signed Impressions: Service Date/Time: Saturday, December 17, 2016 13:28 - CONCLUSION: 1. Comminuted , mildly displaced intratrochanteric fracture of the left hip. Justino Castañeda MD Procedures s/p ORIF L Hip, IM nail Objective Remarks NAD VSS LLE Dressings c/d/i, mild swelling, no erythema, very little drainage thigh and calf supple, neg homans +motor at, +sens, +nvi Assessment & Plan Ortho Post Op Day #: 3 Problem List: (1) Hip fracture, left Assessment and Plan Left peritrochanteric hip fracture, displaced. pod#3 s/p ORIF L Hip, IM nail Ortho stable. TTWBing LLE. Walker assist. No abduction pillow needed. Lovenox for dvt prophylaxis No dressing changes. PO pain control as needed. F/U in 2 weeks at [facility] for xray and wound eval. Nicole Tanner Dec 21, 2016 09:40
[2016-12-21 13:41] LABS: HEMATOCRIT 30.3 % (39.0-51.0); MEAN CELL VOLUME 100.8 FL (80.0-100.0); MEAN CORPUSCULAR HGB CONC 33.7 % (32.0-36.0); PLATELET COUNT 178 TH/MM3 (150-450); RED BLOOD COUNT 3.01 MIL/MM3 (4.50-5.90); RED CELL DISTRIBUTION WIDTH 12.8 % (11.6-17.2); REVIEW FLAG FINAL; WHITE BLOOD COUNT 8.9 TH/MM3 (4.0-11.0)
[2016-12-21 14:08] LABS: BICARBONATE 23.3 MEQ/L (21.0-32.0); POTASSIUM 4.2 MEQ/L (3.5-5.1)
[2016-12-21] MEDS ORDERED: AMBI5TAB PO (14:13)
[2016-12-21] MEDS ORDERED: SENN8.6T15 PO (14:13)
[2016-12-21] MEDS ORDERED: ASPI325T33 PO (14:13)
[2016-12-21] MEDS ORDERED: NICO21DI25 T-DERMAL (14:13)
[2016-12-21] MEDS ORDERED: DOCU1CAP39 PO (14:13)
[2016-12-21] MEDS ORDERED: DOCUSATE SODIUM 100 MG CAP PO ONE (14:15)
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
[2016-12-21] MEDS ORDERED: DOCUSATE SODIUM 100 MG CAP PO SCH (21:00)
== END 2016-12-21 16:11 | DRG 481 ==
LOC: NEPC 12:54 → NEDA 14:53 → N07A 16:59 → N06B 12-18 09:19 → N06A 12-18 13:10
PROVIDERS: ADMIT Hospitalist; ATTEND Hospitalist
PROC: 2W6PX0Z Traction of Left Upper Leg using Traction Apparatus (ICD-10-PCS; 2016-12-17)
PROC: 0QS7XZZ Reposition Left Upper Femur, External Approach (ICD-10-PCS; 2016-12-18)
PROC: 0QH706Z Insertion of Intramedullary Internal Fixation Device into Left Upper Femur, Open Approach (ICD-10-PCS; principal; 2016-12-18 08:03)
DX: S72.142A Displaced intertrochanteric fracture of left femur, initial encounter for closed fracture (principal); I50.22 Chronic systolic (congestive) heart failure; I48.2 Chronic atrial fibrillation; W01.0XXA Fall on same level from slipping, tripping and stumbling without subsequent striking against object, initial encounter; I25.10 Atherosclerotic heart disease of native coronary artery without angina pectoris; I25.2 Old myocardial infarction; Z95.810 Presence of automatic (implantable) cardiac defibrillator; Z87.891 Personal history of nicotine dependence; Z86.73 Personal history of transient ischemic attack (TIA), and cerebral infarction without residual deficits; E78.5 Hyperlipidemia, unspecified; I10 Essential (primary) hypertension; G47.33 Obstructive sleep apnea (adult) (pediatric); J44.9 Chronic obstructive pulmonary disease, unspecified; G47.00 Insomnia, unspecified; E05.90 Thyrotoxicosis, unspecified without thyrotoxic crisis or storm; Z79.82 Long term (current) use of aspirin
CPT/HCPCS: 71010; 73502; 73552; 76000; 80048; 80053; 81001; 84436; 84443; 84481; 85025; 85027; 85610; 85730; 86850; 86900; 86901; 93005; 94150; 94640; 94664; C1713; J0131; J0690; J1170; J1580; J1650; J2175; J2270; J2370; J2405; J2930; J3010; J7030; J7120